=== PATIENT | female | born 1995 | race American Indian/Alaskan Native ===

== ENCOUNTER 2022-09-10 20:02 | Emergency (ER) | payer MEDICAID ==
[2022-09-10] MEDS ORDERED: Ondansetron 4 MG/2 ML SDV IVPUSH ONE (21:23)
[2022-09-10] MEDS ORDERED: Sodium Chloride 0.9% 10 ML Syringe FLUSH PRN (21:23)
[2022-09-10] MEDS ORDERED: Sodium Chloride 0.9% 1,000 ML IV SCH (21:30)
[2022-09-10 21:51] LABS: BASOPHILS ABSOLUTE AUTO 0.03 K/mm3 (0.01-0.08); BASOPHILS PERCENT AUTO 0.4 % (0.1-1.2); EOSINOPHILS ABSOLUTE AUTO 0.18 K/mm3 (0.04-0.36); EOSINOPHILS PERCENT AUTO 2.3 (0.7-5.8); HEMATOCRIT 43.1 % (34.1-44.9); HEMOGLOBIN 15.1 gm/dl (11.2-15.7); LYMPHOCYTES ABSOLUTE AUTO 3.21 K/mm3 (1.18-3.74); LYMPHOCYTES PERCENT AUTO 41.3 % (19.3-51.7); MEAN CORPUSCULAR HEMOGLOBIN 29.8 pg (25.6-32.2); MEAN CORPUSCULAR VOLUME 85.2 fl (79.4-94.8); MEAN PLATELET VOLUME 9.7 fl (9.4-12.3); MONOCYTES ABSOLUTE AUTO 0.41 K/mm3 (0.24-0.36); MONOCYTES PERCENT AUTO 5.3 % (4.7-12.5); NEUTROPHILS ABSOLUTE AUTO 3.95 K/mm3 (1.56-6.13); NEUTROPHILS PERCENT AUTO 50.7 % (34.0-71.1); PLATELET COUNT,PLT 272 K/mm3 (182-369); RED BLOOD CELL COUNT 5.06 M/mm3 (3.98-5.22); WHITE BLOOD CELL COUNT,WBC 7.78 K/mm3 (3.98-10.04)
[2022-09-10 21:51] LABS: APPEARANCE,URINE CLEAR (Clear); BILIRUBIN,URINE NEGATIVE (Negative); COLOR,URINE YELLOW (Yellow); GLUCOSE,URINE NEGATIVE (Negative); KETONES,URINE NEGATIVE (Negative); LEUKOCYTE ESTERASE,URINE NEGATIVE (Negative); NITRITE,URINE NEGATIVE (Negative); OCCULT BLOOD,URINE NEGATIVE (Negative); PROTEIN,URINE NEGATIVE (Negative); UROBILINOGEN,URINE 0.2 (0.2-1.0)
[2022-09-10] MEDS ORDERED: HYDROmorphone 0.5 MG/0.5 ML Syringe IVPUSH ONE (21:52)
[2022-09-10 22:25] LABS: BACTERIA,URINE RARE /hpf (FEW); MUCUS,URINE RARE /hpf (FEW); RBC,URINE 0-5 /hpf (0-5); SQUAMOUS EPITHELIAL CELLS,UR 0-5 /hpf (0-5); WBC,URINE 0-5 /hpf (0-5)
[2022-09-10] MEDS ORDERED: Iopamidol 612 MG/ML 100 ML Bottle IVPUSH ONE (22:27)
[2022-09-10 22:30] LABS: A/G RATIO 1.1 (1-2); ALANINE AMINOTRANSFERASE,ALT 26 U/L (14-59); ALBUMIN 4.1 g/dl (3.4-5.0); ALKALINE PHOSPHATASE 99 U/L (46-116); ASPARTATE AMNIOTRANSFERASE,AST 19 U/L (15-37); BILIRUBIN TOTAL 0.3 mg/dL (0.2-1.0); BLOOD UREA NITROGEN,BUN 12 mg/dL (7-18); BUN/CREATININE RATIO 13.3 (14-18); C-REACTIVE PROTEIN <0.2 mg/dL (<1.0); CALCIUM 9.5 mg/dL (8.5-10.1); CARBON DIOXIDE,CO2 25 mEq/L (21-32); CHLORIDE,CL 106 mEq/L (98-107); CREATININE 0.9 mg/dL (0.55-1.02); ESTIMATED GFR 90 mL/min (>60); GLUCOSE RANDOM 99 mg/dL (70-99); LIPASE 57 U/L (73-393); MAGNESIUM 1.8 mg/dL (1.8-2.4); PROTEIN TOTAL,TP 7.7 g/dl (6.4-8.2); SODIUM,NA 140 mEq/L (136-145)
[2022-09-11 03:12] VITALS: BP 112/76; PULSE 94
== END 2022-09-11 00:36 | disposition home or self-care (01) ==
LOC: JD.ED 20:02
DX: R10.31 Right lower quadrant pain (principal); Z87.891 Personal history of nicotine dependence; Z86.16 Personal history of COVID-19; Z91.030 Bee allergy status
CPT/HCPCS: 36415; 74177; 80053; 81001; 81025; 83690; 83735; 84703; 85025; 86140; 96361; 96374; 96375; 99284; J1170; J2405; J3490; J7030; Q9967